=== PATIENT | male | born 1995 | race American Indian/Alaskan Native ===

== ENCOUNTER 2017-02-24 21:04 | Emergency (ER) | payer OTHER ==
[2017-02-24 21:22] VITALS: BP 123/53
[2017-02-24] MEDS ORDERED: FUL-GLO OP ONE (21:32)
[2017-02-24] MEDS ORDERED: TOBREX OU ONE (21:33)
[2017-02-24] MEDS ORDERED: TETRACAINE 0.5% OU ONE (21:34)
--- NOTE | 2017-02-24 21:55 | Emergency Department Report ---
Eye Injury/Foreign Body - HPI Duration: 2 Days Eye Location: Left Severity: Mild Tetanus Status: Up to Date Eye Symptoms: Eye Pain: Yes, Blurred Vision: No, Eye Redness: Yes, Grinding/ Hammering Metal: No, Used Eye Protection: No, Contact Lens Use: No, Recalls Injury: No, Photophobia: Yes ED Review of Systems ROS: Stated complaint: LT EYE PAIN Other details as noted in HPI Comment: All other systems reviewed and negative Eyes: eye pain, eye discharge ED Past Medical Hx - Past Medical History Previous Medical History?: No - Surgical History Past Surgical History?: No - Family History Family history: no significant - Social History Smoking Status: Never Smoker Substance Use Type: None - Medications Home Medications: Home Medications Medication Instructions Recorded Confirmed Last Taken Type Polymyxin B Sulf/Trimethoprim 2 g OS Q6H #1 each 02/24/17 Unknown Rx [Polytrim Eye Drops] Eye Injury Exam - Exam General: Vital signs noted. No distress. Alert and acting appropriately. - Visual Acuity Left Vision Acuity Degree: 20/20 Eye Exam: Left Mucous Discharge (L EYE ONLY), Left Photophobia (L EYE ONLY), Neither Injection, Neither Chemosis, Neither Abnormal Pupil, Neither EOMI, Neither Eye Foreign Body, Neither Lid Foreign Body, Neither Purulent Discharge, Neither Fluorescein Uptake, Neither Fluorescein Uptake (slit lamp), Neither Cell /Flare (slit lamp), Neither Corneal Edema Right Vision Acuity Degree: 20/20 Eye Exam: Neither Injection, Neither Chemosis, Neither Abnormal Pupil, Neither EOMI, Neither Eye Foreign Body, Neither Lid Foreign Body, Neither Mucous Discharge, Neither Purulent Discharge, Neither Fluorescein Uptake, Neither Fluorescein Uptake (slit lamp), Neither Cell/Flare (slit lamp), Neither Corneal Edema, Neither Photophobia Bilateral Vision Acuity Degree: 20/20 Eye Exam: Left Mucous Discharge, Left Photophobia, Neither Injection, Neither Chemosis, Neither Abnormal Pupil, Neither EOMI, Neither Eye Foreign Body, Neither Lid Foreign Body, Neither Purulent Discharge, Neither Fluorescein Uptake , Neither Fluorescein Uptake (slit lamp), Neither Cell/Flare (slit lamp), Neither Corneal Edema Exam: L CONJUNC RED LATERALLY, MILD ED Course Vital Signs 02/24/17 21:20 Temperature 98.2 F Pulse Rate 94 H Respiratory 18 Rate Blood Pressure 123/53 O2 Sat by Pulse 99 Oximetry - Eye Procedure Alcaine Drops Administered: Yes Eye Irrigated w/ Saline (ccs): 2 Cyclogel 2 Drops Administered: left eye Antibiotic Oinment/Drps Admin: left eye Progress: PAIN RELIEVED W TETRACAINE NO INC UPDATE FLUOR. ED Medical Decision Making - Medical Decision Making SEE NOTE - Differential Diagnosis CONJUNC V ABRASION Critical care attestation.: If time is entered above; I have spent that time in minutes in the direct care of this critically ill patient, excluding procedure time. ED Disposition Clinical Impression: Conjunctivitis Disposition: DC-01 TO HOME OR SELFCARE Is pt being admited?: No Does the pt Need Aspirin: No Condition: Stable Instructions: Conjunctivitis (ED) Prescriptions: Polymyxin B Sulf/Trimethoprim [Polytrim Eye Drops] 2 g OS Q6H #1 each Referrals: INGRID ENRIQUEZ MD [Primary Care Provider] - 3-5 Days Forms: Work/School Release Form(ED) Time of Disposition: 21:54
== END 2017-02-24 22:18 | disposition home or self-care (01) ==
LOC: ED 21:04
DX: H10.9 Unspecified conjunctivitis (principal)
CPT/HCPCS: 99283